=== PATIENT | female | born 1980 | race Caucasian/White ===

== ENCOUNTER 2018-02-23 20:25 | Emergency (ER) | payer MEDICAID ==
[~2018-02-23] VITALS: Ht 170.2 cm; Wt 98.4 kg
[2018-02-23 20:51] VITALS: BP 145/96
[2018-02-23] MEDS ORDERED: KETOROLAC TROMETH 60MG/2ML VIAL IM ONE ×2 (23:30→23:45)
[2018-02-23] MEDS ORDERED: HYDROcodone-ACET 10/325MG TAB PO ONE ×2 (23:30→23:45)
== END 2018-02-24 00:19 | disposition home or self-care (01) ==
LOC: ER 20:25
DX: S92.325A Nondisplaced fracture of second metatarsal bone, left foot, initial encounter for closed fracture (principal); S92.335A Nondisplaced fracture of third metatarsal bone, left foot, initial encounter for closed fracture; S92.345A Nondisplaced fracture of fourth metatarsal bone, left foot, initial encounter for closed fracture; E11.9 Type 2 diabetes mellitus without complications; F17.210 Nicotine dependence, cigarettes, uncomplicated; Z88.0 Allergy status to penicillin; W19.XXXA Unspecified fall, initial encounter; Y93.89 Activity, other specified; Y92.89 Other specified places as the place of occurrence of the external cause; Y99.8 Other external cause status
CPT/HCPCS: 73610; 73700; 96372; 99284; J1885; L3260